=== PATIENT | female | born 1970 | race Caucasian/White ===

== ENCOUNTER 2019-10-15 05:40 | Inpatient (IN) ==
[2019-10-15] MEDS ORDERED: IOPAMIDOL 100 ML BOTTLE IV ONE (05:41)
[2019-10-15] MEDS ORDERED: LACTATED RINGERS 1,000 ML IV ONE (05:58)
[2019-10-15] MEDS ORDERED: ONDANSETRON 4 MG/2 ML VIAL IV ONE (05:58)
[2019-10-15 05:59] LABS: POC Blood Urea Nitrogen 14 mg/dl (6-20); POC CO2 24 mmol/L (22-30); POC Calcium, Ionized 1.11 mmol/L (1.16-1.32); POC Chloride 102 mmol/L (96-108); POC Creatinine 0.6 mg/dl (0.6-1.1); POC Glucose, Random 101 mg/dL (70-105); POC Potassium 3.8 mmol/L (3.3-5.1); POC Sodium 136 mmol/L (133-145)
[2019-10-15] MEDS: HYDROmorphone 2 MG/ML VIAL IV SCH (06:27)
--- NOTE | 2019-10-15 06:32 | Emergency Department Note ---
Abdominal Pain HPI - General Chief Complaint: Abdominal Pain Stated Complaint: abd pain Time Seen by Provider: 10/15/19 05:58 Source: patient Mode of arrival: ambulatory Limitations: no limitations - History of Present Illness HPI Narrative: This patient began having periumbilical pain yesterday and it has localized to right lower quadrant today. She feels minimal nausea and no fever. She is otherwise healthy and works out daily. MD Complaint: abdominal pain Onset (ago): hour(s) Consistency: constant Location: RLQ Severity: moderate Quality: aching Radiation: none Improves with: nothing Worsens with: movement - Related Data Home Medications Medication Instructions Recorded Confirmed Estrogen,Con/M-Progest Acet DAILY 10/15/19 [Prempro 0.3 mg-1.5 mg Tablet] Previous Rx's Medication Instructions Recorded trazodone 150 mg tablet 150 mg PO QHS PRN #90 tab 11/07/18 Cyclobenzaprine [Flexeril] 10 mg PO TID #20 tab 04/01/19 Allergies Allergy/AdvReac Type Severity Reaction Status Date / Time No Known Drug Allergies Allergy Verified 10/15/19 05:45 Review of Systems All systems ED: reviewed and negative except as stated. Abdominal Pain PMH - Past Medical History Medical history: Reports: no medical history - Social History Smoking status: Never smoker Physical Exam Limitations: no limitations General appearance: alert Head: atraumatic Eye: Present: normal appearance ENT: Present: normal exam Neck: Present: normal inspection Chest: Present: normal inspection Respiratory: Present: normal lung sounds bilaterally Cardiovascular: Present: regular rate, normal rhythm, normal heart sounds Abdominal: Present: soft, tenderness, guarding. Absent: distention, rebound, rigidity Abdominal tenderness: Present: RLQ, moderate Neurological: Present: alert Psychiatric: Present: normal affect Skin: Present: warm, dry Course Vital Signs Temperature 98.0 F 10/15/19 05:41 Pulse Rate 92 H 10/15/19 05:41 Respiratory Rate 18 10/15/19 05:41 Blood Pressure 136/73 10/15/19 05:41 Pulse Oximetry (%) 97 10/15/19 05:41 Temperature 98.0 F 10/15/19 05:41 Pulse Rate 91 H 10/15/19 06:55 Respiratory Rate 18 10/15/19 05:41 Blood Pressure 153/72 11/18/19 06:55 Pulse Oximetry (%) 96 10/15/19 06:55 Abdominal Pain - MDM Narrative Medical decision making narrative: CT scan is very suggestive of appendicitis. She will be admitted to the hospital by Dr. Joshua for appendectomy. We ordered Zosyn and admitted her. - Lab Data Lab results reviewed: Yes I reviewed the patient's lab results. Result diagrams: 10/15/19 05:55 10/15/19 05:55 Lab Results 10/15/19 10/15/19 10/15/19 Range/Units 05:55 05:55 06:15 WBC 15.6 H (4.5-11.0) K/mcL RBC 4.20 (4.00-5.20) M/mcL Hgb 13.0 (12.0-15.0) g/dL Hct 38.0 (36.0-48.0) % POC Hct 37.0 (36.0-48.0) % MCV 90.4 (80.0-100.0) fL MCH 31.0 (26.0-34.0) pg MCHC 34.3 (31.0-36.0) g/dL RDW 12.5 (11.5-14.5) % Plt Count 251 (140-440) K/mcL MPV 6.8 L (7.4-10.4) fL Gran % 81.6 H (38.0-78.0) % Lymph % (Auto) 12.4 L (15.5-49.0) % [place] % (Auto) 5.5 (1.0-12.0) % Eos % (Auto) 0.2 (0.0-7.0) % Baso % (Auto) 0.3 (0.0-2.0) % Gran # 12.7 H (1.8-8.0) K/mcL Lymph # (Auto) 1.9 (1.5-4.8) K/mcL [place] # (Auto) 0.9 (0.1-0.9) K/mcL Eos # (Auto) 0 (0.0-0.7) K/mcL Baso # (Auto) 0 (0.0-0.3) K/mcL POC Sodium 136 (133-145) mmol/L POC Potassium 3.8 (3.3-5.1) mmol/L POC Chloride 102 (96-108) mmol/L POC Total CO2 24 (22-30) mmol/L POC BUN 14 (6-20) mg/dl POC Creatinine 0.6 (0.6-1.1) mg/dl POC Glucose 101 (70-105) mg/dL POC WB Ioniz Calcium 1.11 L (1.16-1.32) mmol/L Urine Color Yellow Urine Appearance Clear Urine pH 8.0 (5.0-9.0) Ur Specific [place] 1.017 (1.000-1.035) Urine Protein Neg (NEG) mg/dL Urine Glucose (UA) Negative (NEG) mg/dL Urine Ketones Neg (NEG) mg/dL Urine Occult Blood Neg (<0.03) mg/dL Urine Nitrate Neg (NEG) Urine Bilirubin Neg (NEG) mg/dL Urine Urobilinogen Neg (NEG) mg/dL Ur Leukocyte Esterase Neg (NEG) /uL Ur Culture Indicated? No - Radiology Data Radiology results reviewed: Yes I reviewed the patient's radiology results. Disposition Pt seen by ANATOMIC PATHOLOGY ASSISTANT/PA only: No Clinical Impression: Acute appendicitis Disposition: Xfer As Outpt/Obs ([facility]) Condition: Good Referrals: Opal Marinelli ARNP [Primary Care Provider] - Time of Disposition: 07:11
[2019-10-15 06:58] LABS: Basophils # (Auto) 0 K/mcL (0.0-0.3); Basophils % (Auto) 0.3 % (0.0-2.0); Eosinophils # (Auto) 0 K/mcL (0.0-0.7); Eosinophils % (Auto) 0.2 % (0.0-7.0); Granulocytes % (Auto) 81.6 % (38.0-78.0); Lymphocytes # (Auto) 1.9 K/mcL (1.5-4.8); Lymphocytes % (Auto) 12.4 % (15.5-49.0); Mean Cell Volume 90.4 fL (80.0-100.0); Mean Corpuscular HGB Conc 34.3 g/dL (31.0-36.0); Mean Platelet Volume 6.8 fL (7.4-10.4); Monocytes # (Auto) 0.9 K/mcL (0.1-0.9); Monocytes % (Auto) 5.5 % (1.0-12.0); Platelet Count 251 K/mcL (140-440); Red Cell Distribution Width 12.5 % (11.5-14.5); WBC 15.6 K/mcL (4.5-11.0)
[2019-10-15 07:03] LABS: Appearance,Urine CLEAR; Bilirubin,Urine NEG (NEG); Color,Urine YELLOW; Culture Indicated,Urine NO; Glucose,Urine (UA) NEGATIVE (NEG); Ketones,Urine NEG (NEG); Leukocyte Esterase,Urine NEG /uL (NEG); Nitrate,Urine NEG (NEG); Protein,Urine NEG (NEG); Specific Gravity,Urine 1.017 (1.000-1.035); Urine Blood NEG mg/dL (<0.03); Urobilinogen,Urine NEG (NEG)
[2019-10-15] MEDS ORDERED: PIPERACILLIN SODIUM/TAZOBACTAM 3.375 GM in DEXTROSE 5% IN WATER 50 ML IV ONE (07:03)
[2019-10-15 07:13] LABS: ALT/SGPT 14 U/l (0-40); AST/SGOT 14 U/l (0-37); Albumin 3.9 gm/dL (3.2-5.2); Alkaline Phosphatase 67 U/L (39-117); Bilirubin,Total 0.6 mg/dL (0.0-1.0); Blood Urea Nitrogen 14 mg/dl (6-20); Calcium 8.7 mg/dl (8.6-10.4); Carbon Dioxide 24 mmol/L (22-30); Chloride 102 mmol/L (96-108); Glomerular Filtration Rate 102; Glucose 100 mg/dL (70-105)
--- NOTE | 2019-10-15 09:17 | Cat Scan Report ---
CLINICAL INFORMATION: Right lower quadrant pain COMPARISON: None. TECHNIQUE: Following enteric contrast, 80 cc of Isovue-370 were injected intravenously, and 60 seconds later, 0.625 mm helical slices were obtained from the mid heart through the subtrochanteric regions. Following reconstruction, 2.5 mm sagittal, coronal and axial reformatted images were processed and reviewed at bone, lung and soft tissue windows. Five minutes later, 0.625 mm helical slices were obtained from the mid heart through the kidneys and viewed at soft tissue windows.The exam was performed using radiation dose optimization techniques including, but not limited to, automated exposure control, adjustment of the mA and/or kV according to patient size and use of iterative reconstruction technique. FINDINGS: Lung bases show no abnormality - no effusion. The visualized heart is normal. Abdominal images show the gallbladder and bile ducts, both kidneys, adrenal glands, spleen, pancreas and aorta, including aortic branches are normal in size configuration and attenuation without focal lesion. There is no adenopathy. Pelvic images show hysterectomy changes. There is a 20 mm simple cyst in the right ovary. Left ovary is not seen and may be surgically absent. Urinary bladder is normal. Sigmoid diverticulitis featuring moderate wall thickening of the mid sigmoid colon with perisigmoid phlegmon. There is a collection of free air in the superior perisigmoid region spanning 7 cm representing focal perforation. In addition, small amount of free air present in the gopal hepatis and over the anterior surface of the right hepatic lobe. The remaining colon is normal. A small amount of fluid in the inferior right paracolic gutter partially obscures the mid and distal appendix. The proximal appendix, near the cecal junction, appears unremarkable. Small bowel and stomach are normal. Bone windows show no osseous abnormality IMPRESSION: 1. Sigmoid diverticulitis with moderate perforation of inflamed diverticulum resulting in a 7 cm collection of free air in the adjacent superior perisigmoid soft tissues. In addition, a small amount in the gopal hepatis and perihepatic region. Small amount of free fluid is also noted. 2. The appendix is not well-visualized - the distal /mid appendix are obscured by paracolic fluid. Near the cecal junction, the is normal - no definite evidence of appendicitis Interpreted and Authenticated by: Pete Koch 10/15/19
[2019-10-15] MEDS: HYDROmorphone 2 MG/ML VIAL IV PRN ×3 (10:27→18:03)
--- NOTE | 2019-10-15 13:48 | General Surg History&Physical ---
History of Present Illness Patient information: Note initiated : 10/15/19 at 1:45 pm Service Date, if different from initiated Date: [] Patient: Radha Chavez a 48 y/o F admitted on 10/15/19 for abd pain. Chief Complaint: [] HPI: Ms. Chavez is a 48 year old F admitted for treatment of acute diverticulitis with perforation. The patient had onset of suprapubic pain about 1400 hrs. yesterday. This was accompanied by nausea with vomiting. She did not have fever, chills. Her pain spread across the abdomen and intensified. This prompted her to come to the emergency room. Her white blood count is increased to 15,[address] of the abdomen shows sigmoid diverticulitis with perforation and scattered free air with early development of collection in the pelvis. She is admitted and is counseled for nonoperative treatment. As she improves. She will have follow-up CT on September. Her therapy will be based on her clinical course. Review of Systems - Constitutional weight loss (intentional weight loss) - Respiratory no cough, no chest congestion, no pain with cough - Gastrointestinal abdominal pain, bloating, nausea, vomiting - Musculoskeletal back pain, myalgias - Integumentary no pruritus, no rash - Psychiatric abnormal sleep pattern, anxiety, depression - Hematologic/Lymphatic no easy bleeding, no easy bruising, no lymphadenopathy - Allergic/Immunologic no tongue swelling, no throat swelling, no uticaria, no wheezing, no lip swelling Past History Past medical history: No chronic medical illnesses Past surgical history: Vaginal hysterectomy. Arthroscopic surgery right knee. Tubal ligation. Left breast biopsy Past family history: Father at age 42 due to complications of heart attack. Mother age 32 due to complications of surgery. Brother age 50 due to complications of alcoholism. Aunt with breast cancer Past social history: Never smoker. Occasional alcohol use Denies drug use Medications and Allergies Home Medications Medication Instructions Recorded Confirmed Type trazodone 150 mg tablet 150 mg PO QHS PRN #90 tab 11/07/18 10/15/19 Rx Cyclobenzaprine [Flexeril] 10 mg PO TID PRN 10/15/19 10/15/19 History Estradiol [Estrace] 2 mg PO DAILY 10/15/19 10/15/19 History Progesterone,Micronized 200 mg PO QDAY 10/15/19 10/15/19 History [Prometrium] Allergies Allergy/AdvReac Type Severity Reaction Status Date / Time No Known Drug Allergies Allergy Verified 10/15/19 05:45 Exam Temp Pulse Resp BP Pulse Ox 99 F 18 L 18 126/75 97 10/15/19 09:22 10/15/19 09:22 10/15/19 09:22 10/15/19 09:22 10/15/19 09:22 - General physical appearance well developed, well nourished, no distress, moderate pain - Eyes PERRL, normal ocular movement - ENT normal pinna, normal nares, normal mucosa, no hearing loss, no congestion - Head Head exam IM: Present: atraumatic, normocephalic - Neck no masses, no bruits, trachea midline, no lymphadenopathy, no venous distension - Cardiovascular Cardiovascular exam IM: Present: normal rate and rhythm, RRR, +S1, +S2. Absent: JVD, tachycardia - Respiratory normal expansion, normal respiratory effort, clear to auscultation - Abdomen Abdomen: Present: soft, tender (diffuse tenderness with guarding of entire lower abdomen; active bowel sounds; no palpable mass), bowel sounds Hernia: Present: none - Genitourinary Present: normal external genitalia - Integumentary Present: no rash, no growths, no abnormal pigmentation - Neurologic Present: normal coordination, normal sensation - Musculoskeletal Present: normal gait, normal posture - Psychiatric Present: oriented to time, oriented to person, oriented to place, speech is normal, memory intact Assessment and Plan (1) Diverticulitis of colon with perforation Patient is started on Zosyn and will be continued. Plan is for follow-up CT on Tuesday. Will explored emergently if patient should worsen. Status: Acute
[2019-10-15] MEDS ORDERED: ACETAMINOPHEN 1,000 MG in PREMIX 1 BAG IV SCH (14:00)
[2019-10-15] MEDS: PIPERACILLIN SODIUM/TAZOBACTAM 3.375 GM in DEXTROSE 5% IN WATER 50 ML IV SCH ×2 (14:27→21:17)
[2019-10-15] MEDS: 0.9 % SODIUM CHLORIDE 10 ML SYRINGE IV SCH ×2 (15:31→22:12)
[2019-10-15] MEDS: 0.9 % SODIUM CHLORIDE 1,000 ML IV SCH ×2 (15:53→23:45)
[2019-10-15] MEDS: ACETAMINOPHEN 1,000 MG/100 ML BOTTLE IV SCH ×2 (15:54→22:11)
[2019-10-15] MEDS: ONDANSETRON 4 MG/2 ML VIAL IV PRN (18:40)
[2019-10-15] MEDS: PROMETHAZINE 25 MG/ML VIAL IV PRN ×2 (19:36→23:43)
[2019-10-15] MEDS: traZODone HCL 150 MG TABLET PO PRN (22:10)
[2019-10-16] MEDS: HYDROmorphone 2 MG/ML VIAL IV PRN ×7 (02:50→23:31)
[2019-10-16] MEDS: PIPERACILLIN SODIUM/TAZOBACTAM 3.375 GM in DEXTROSE 5% IN WATER 50 ML IV SCH ×4 (03:35→18:14)
[2019-10-16] MEDS: ACETAMINOPHEN 1,000 MG/100 ML BOTTLE IV SCH ×3 (04:22→19:30)
[2019-10-16] MEDS: PROMETHAZINE 25 MG/ML VIAL IV PRN ×3 (04:24→23:28)
[2019-10-16] MEDS: 0.9 % SODIUM CHLORIDE 10 ML SYRINGE IV SCH ×3 (05:38→21:40)
[2019-10-16 05:45] LABS: Basophils # (Auto) 0 K/mcL (0.0-0.3); Basophils % (Auto) 0 % (0.0-2.0); Eosinophils # (Auto) 0.1 K/mcL (0.0-0.7); Eosinophils % (Auto) 0.6 % (0.0-7.0); Granulocytes % (Auto) 84.8 % (38.0-78.0); Hematocrit 33.8 % (36.0-48.0); Hemoglobin 11.6 g/dL (12.0-15.0); Lymphocytes # (Auto) 1.2 K/mcL (1.5-4.8); Lymphocytes % (Auto) 8.6 % (15.5-49.0); Mean Cell Volume 91.1 fL (80.0-100.0); Mean Corpuscular HGB Conc 34.3 g/dL (31.0-36.0); Mean Platelet Volume 6.7 fL (7.4-10.4); Monocytes # (Auto) 0.8 K/mcL (0.1-0.9); Platelet Count 217 K/mcL (140-440); RBC 3.72 M/mcL (4.00-5.20); Red Cell Distribution Width 12.7 % (11.5-14.5); WBC 13.9 K/mcL (4.5-11.0)
[2019-10-16] MEDS: HYDROmorphone 2 MG/ML VIAL IV SCH (05:48)
[2019-10-16 06:53] LABS: ALT/SGPT 11 U/l (0-40); AST/SGOT 14 U/l (0-37); Albumin/Globulin Ratio 1.2 (1.0-2.3); Alkaline Phosphatase 67 U/L (39-117); Bilirubin,Direct 0.2 mg/dL (0.0-0.3); Bilirubin,Total 0.6 mg/dL (0.0-1.0); Blood Urea Nitrogen 10 mg/dl (6-20); Carbon Dioxide 22 mmol/L (22-30); Chloride 104 mmol/L (96-108); Globulin 2.5 gm/dL (2.2-3.7); Glomerular Filtration Rate 102; Glucose 108 mg/dL (70-105); Lactate Dehydrogenase 167 U/L (94-250); Phosphorous 3.8 mg/dL (2.7-4.5); Triglycerides 56 mg/dl (<150); Uric Acid 3.2 mg/dL (2.5-8.0)
[2019-10-16] MEDS: 0.9 % SODIUM CHLORIDE 1,000 ML IV SCH ×3 (07:43→17:08)
[2019-10-16] MEDS: ESTRADIOL 1 MG TABLET PO SCH (09:27)
[2019-10-16] MEDS: PROGESTERONE MICRONIZED 200 MG PO SCH (09:36)
--- NOTE | 2019-10-16 11:22 | General Surgery Progress Note ---
Subjective Patient reports: feels better, still having pain, pain is less, flatus, nausea, vomiting Narrative: Note initiated : 10/16/19 at 11:20 am Service Date, if different from initiated Date: [] Patient: Radha Chavez 48 y/o F admitted on 10/15/19 for abd pain. Chief Complaint: [patient states that she feels better. She still has some lower abdominal pain but it is not as intense as it was on yesterday. She had some nausea with vomiting last evening that was associated with eating a popsicle. She does not have any difficulty. Ice chips and sips of water, so it was probably more related to the popsicle. She has less bloating. She has passed flatus but has not had a bowel movement. White blood count is decreased to 13.9, hemoglobin 11.6, hematocrit 33.8.] Objective Temp Pulse Resp BP Pulse Ox 97.6 F 94 H 16 130/69 97 10/16/19 07:18 10/16/19 07:18 10/16/19 02:40 10/16/19 07:18 10/16/19 07:18 - Additional Data Intake & Output - Last 24 hours: Intake & Output 10/14/19 10/15/19 10/16/19 10/17/19 05:59 05:59 05:59 05:59 Intake Total 2650 1200 Output Total 600 Balance 0 1200 Weight 185 lb 190 lb - General physical appearance well developed, well nourished, no distress, moderate pain - Eyes PERRL, normal ocular movement - ENT normal pinna, normal nares, normal mucosa, no hearing loss, no congestion - Neck no masses, no bruits, trachea midline, no lymphadenopathy, no venous distension - Respiratory normal expansion, normal respiratory effort, clear to auscultation - Cardiovascular Cardiovascular exam: Present: normal rate and rhythm, +S1, +S2. Absent: RRR, tachycardia - Abdomen tender (moderate tenderness of hypogastric; decreased distention; good active bowel sounds), bowel sounds (present), surgical scars (none), masses (none) - Integumentary no rash, no growths, no abnormal pigmentation - Neurologic normal coordination, normal sensation - Musculoskeletal normal gait, normal posture - Psychiatric oriented to time, oriented to person, oriented to place, speech is normal, memory intact - Labs 10/16/19 03:56 10/16/19 03:56 Diabetes panel 10/16/19 Range/Units 03:56 Sodium 138 (133-145) mmol/L Potassium 3.6 (3.3-5.1) mmol/L Chloride 104 (96-108) mmol/L Carbon Dioxide 22 (22-30) mmol/L BUN 10 (6-20) mg/dl Creatinine 0.7 (0.6-1.1) mg/dl Glucose 108 H (70-105) mg/dL Calcium 8.0 L (8.6-10.4) mg/dl AST 14 (0-37) U/l ALT 11 (0-40) U/l Alkaline Phosphatase 67 (39-117) U/L Total Protein 5.5 L (5.9-8.4) gm/dL Albumin 3.0 L (3.2-5.2) gm/dL Triglycerides 56 (<150) mg/dl Calcium panel 10/16/19 Range/Units 03:56 Calcium 8.0 L (8.6-10.4) mg/dl Phosphorus 3.8 (2.7-4.5) mg/dL Albumin 3.0 L (3.2-5.2) gm/dL Pituitary panel 10/16/19 Range/Units 03:56 Sodium 138 (133-145) mmol/L Potassium 3.6 (3.3-5.1) mmol/L Chloride 104 (96-108) mmol/L Carbon Dioxide 22 (22-30) mmol/L BUN 10 (6-20) mg/dl Creatinine 0.7 (0.6-1.1) mg/dl Glucose 108 H (70-105) mg/dL Calcium 8.0 L (8.6-10.4) mg/dl Adrenal panel 10/16/19 Range/Units 03:56 Sodium 138 (133-145) mmol/L Potassium 3.6 (3.3-5.1) mmol/L Chloride 104 (96-108) mmol/L Carbon Dioxide 22 (22-30) mmol/L BUN 10 (6-20) mg/dl Creatinine 0.7 (0.6-1.1) mg/dl Glucose 108 H (70-105) mg/dL Calcium 8.0 L (8.6-10.4) mg/dl Total Bilirubin 0.6 (0.0-1.0) mg/dL AST 14 (0-37) U/l ALT 11 (0-40) U/l Alkaline Phosphatase 67 (39-117) U/L Total Protein 5.5 L (5.9-8.4) gm/dL Albumin 3.0 L (3.2-5.2) gm/dL Assessment and Plan (1) Diverticulitis of colon with perforation Status: Acute Assessment and plan: The patient is clinically stable and improved. Discussed with her the need to c ontinue with present therapy. Will delay instituting liquid diet until tomorrow. Still plan to have follow-up CT on Tuesday Current Visit: Yes - Time Spent With Patient Total time spent is greater than 50% in coordination of care (as documented) at patient's floor/unit and/or counseling patient:
[2019-10-16] MEDS ORDERED: ACETAMINOPHEN 1,000 MG/100 ML BOTTLE IV PRN (20:00)
[2019-10-16] MEDS: traZODone HCL 150 MG TABLET PO PRN (23:31)
[2019-10-17] MEDS: ACETAMINOPHEN 1,000 MG/100 ML BOTTLE IV SCH ×4 (00:44→17:43)
[2019-10-17] MEDS: PIPERACILLIN SODIUM/TAZOBACTAM 3.375 GM in DEXTROSE 5% IN WATER 50 ML IV SCH ×4 (01:12→17:41)
[2019-10-17] MEDS: 0.9 % SODIUM CHLORIDE 1,000 ML IV SCH ×4 (01:12→21:28)
[2019-10-17] MEDS: HYDROmorphone 2 MG/ML VIAL IV PRN ×2 (04:12→21:53)
[2019-10-17 05:59] LABS: Basophils # (Auto) 0 K/mcL (0.0-0.3); Basophils % (Auto) 0.3 % (0.0-2.0); Eosinophils # (Auto) 0.2 K/mcL (0.0-0.7); Eosinophils % (Auto) 1.3 % (0.0-7.0); Granulocytes % (Auto) 79.3 % (38.0-78.0); Hematocrit 31.2 % (36.0-48.0); Hemoglobin 10.7 g/dL (12.0-15.0); Lymphocytes # (Auto) 1.4 K/mcL (1.5-4.8); Lymphocytes % (Auto) 11.4 % (15.5-49.0); Mean Cell Volume 89.5 fL (80.0-100.0); Mean Corpuscular HGB Conc 34.2 g/dL (31.0-36.0); Mean Platelet Volume 7.1 fL (7.4-10.4); Monocytes # (Auto) 0.9 K/mcL (0.1-0.9); Monocytes % (Auto) 7.7 % (1.0-12.0); Platelet Count 208 K/mcL (140-440); RBC 3.49 M/mcL (4.00-5.20); Red Cell Distribution Width 11.9 % (11.5-14.5); WBC 12.3 K/mcL (4.5-11.0)
[2019-10-17 06:45] LABS: ALT/SGPT 10 U/l (0-40); AST/SGOT 13 U/l (0-37); Albumin 2.8 gm/dL (3.2-5.2); Albumin/Globulin Ratio 1.1 (1.0-2.3); Alkaline Phosphatase 95 U/L (39-117); Bilirubin,Direct 0.3 mg/dL (0.0-0.3); Bilirubin,Total 0.6 mg/dL (0.0-1.0); Blood Urea Nitrogen 6 mg/dl (6-20); Carbon Dioxide 23 mmol/L (22-30); Chloride 105 mmol/L (96-108); Globulin 2.5 gm/dL (2.2-3.7); Glomerular Filtration Rate 107; Glucose 103 mg/dL (70-105); Lactate Dehydrogenase 173 U/L (94-250); Phosphorous 2.7 mg/dL (2.7-4.5); Triglycerides 81 mg/dl (<150)
[2019-10-17] MEDS: 0.9 % SODIUM CHLORIDE 10 ML SYRINGE IV SCH ×3 (06:47→21:12)
[2019-10-17 06:48] LABS: Uric Acid 2.3 mg/dL (2.5-8.0)
[2019-10-17] MEDS: HYDROmorphone 2 MG/ML VIAL IV SCH (06:48)
[2019-10-17] MEDS: PROMETHAZINE 25 MG/ML VIAL IV PRN ×3 (06:50→21:11)
[2019-10-17] MEDS: ESTRADIOL 1 MG TABLET PO SCH ×2 (08:54→08:57)
[2019-10-17] MEDS: PROGESTERONE MICRONIZED 200 MG PO SCH ×3 (08:54→21:12)
[2019-10-17] MEDS: ONDANSETRON 4 MG/2 ML VIAL IV PRN (12:32)
--- NOTE | 2019-10-17 15:14 | General Surgery Progress Note ---
Subjective Patient reports: feels better, still having pain, pain is less, flatus, no bowel movement, nausea, vomiting, afebrile Narrative: Note initiated : 10/17/19 at 3:12 pm Service Date, if different from initiated Date: [] Patient: Radha Chavez 48 y/o F admitted on 10/15/19 for abd pain. Chief Complaint: [patient states that she has less pain. She has not required many or as frequent analgesics. She had some nausea with emesis of white foam. No bilious vomiting. She has passed flatus without difficulty. She states that she generally feels better. White blood count 12.3, hemoglobin 10.7, hematocrit 31.2.] Objective Temp Pulse Resp BP Pulse Ox 98.6 F 90 16 142/80 92 10/17/19 12:00 10/17/19 12:00 10/17/19 12:00 10/17/19 12:00 10/17/19 12:00 - Additional Data Intake & Output - Last 24 hours: Intake & Output 10/15/19 10/16/19 10/17/19 10/18/19 05:59 05:59 05:59 05:59 Intake Total 2650 3810 1300 Output Total 600 1425 525 Balance 2049 2385 775 Weight 185 lb 190 lb 191 lb 8 oz - General physical appearance well developed, well nourished, no distress - Eyes PERRL, normal ocular movement - ENT normal pinna, normal nares, normal mucosa, no hearing loss, no congestion - Neck no masses, no bruits, trachea midline, no lymphadenopathy, no venous distension - Respiratory normal expansion, normal respiratory effort, clear to auscultation - Cardiovascular Cardiovascular exam: Present: normal rate and rhythm, +S1, +S2. Absent: RRR, tachycardia - Abdomen tender (still with tenderness in suprapubic and hypogastric area; much less guarding; active bowel sounds; no distention), bowel sounds (present), surgical scars (none), masses (none) - Integumentary no rash, no growths, no abnormal pigmentation - Neurologic normal coordination, normal sensation - Musculoskeletal normal gait, normal posture - Psychiatric oriented to time, oriented to person, oriented to place, speech is normal, memory intact - Labs 10/17/19 04:08 10/17/19 04:08 Diabetes panel 10/17/19 Range/Units 04:08 Sodium 138 (133-145) mmol/L Potassium 3.3 (3.3-5.1) mmol/L Chloride 105 (96-108) mmol/L Carbon Dioxide 23 (22-30) mmol/L BUN 6 (6-20) mg/dl Creatinine 0.6 (0.6-1.1) mg/dl Glucose 103 (70-105) mg/dL Calcium 8.0 L (8.6-10.4) mg/dl AST 13 (0-37) U/l ALT 10 (0-40) U/l Alkaline Phosphatase 95 (39-117) U/L Total Protein 5.3 L (5.9-8.4) gm/dL Albumin 2.8 L (3.2-5.2) gm/dL Triglycerides 81 (<150) mg/dl Calcium panel 10/17/19 Range/Units 04:08 Calcium 8.0 L (8.6-10.4) mg/dl Phosphorus 2.7 (2.7-4.5) mg/dL Albumin 2.8 L (3.2-5.2) gm/dL Pituitary panel 10/17/19 Range/Units 04:08 Sodium 138 (133-145) mmol/L Potassium 3.3 (3.3-5.1) mmol/L Chloride 105 (96-108) mmol/L Carbon Dioxide 23 (22-30) mmol/L BUN 6 (6-20) mg/dl Creatinine 0.6 (0.6-1.1) mg/dl Glucose 103 (70-105) mg/dL Calcium 8.0 L (8.6-10.4) mg/dl Adrenal panel 10/17/19 Range/Units 04:08 Sodium 138 (133-145) mmol/L Potassium 3.3 (3.3-5.1) mmol/L Chloride 105 (96-108) mmol/L Carbon Dioxide 23 (22-30) mmol/L BUN 6 (6-20) mg/dl Creatinine 0.6 (0.6-1.1) mg/dl Glucose 103 (70-105) mg/dL Calcium 8.0 L (8.6-10.4) mg/dl Total Bilirubin 0.6 (0.0-1.0) mg/dL AST 13 (0-37) U/l ALT 10 (0-40) U/l Alkaline Phosphatase 95 (39-117) U/L Total Protein 5.3 L (5.9-8.4) gm/dL Albumin 2.8 L (3.2-5.2) gm/dL Assessment and Plan (1) Diverticulitis of colon with perforation Status: Acute Assessment and plan: The patient is clinically stable and improved. Discussed with her the need to continue with present therapy. Start clear liquids ENLIVE 3 times a day Follow-up CT on Tuesday Current Visit: Yes - Time Spent With Patient Total time spent is greater than 50% in coordination of care (as documented) at patient's floor/unit and/or counseling patient:
[2019-10-17] MEDS ORDERED: POTASSIUM PHOSPHATE 40 MEQ in DEXTROSE 5% IN WATER 500 ML IV ONE (15:15)
[2019-10-17] MEDS: CYCLOBENZAPRINE 10 MG TABLET PO PRN (21:13)
[2019-10-17] MEDS: traZODone HCL 150 MG TABLET PO PRN (21:50)
[2019-10-18] MEDS: PIPERACILLIN SODIUM/TAZOBACTAM 3.375 GM in DEXTROSE 5% IN WATER 50 ML IV SCH ×4 (00:04→17:50)
[2019-10-18] MEDS: 0.9 % SODIUM CHLORIDE 1,000 ML IV SCH ×5 (00:14→22:15)
[2019-10-18] MEDS: ACETAMINOPHEN 1,000 MG/100 ML BOTTLE IV SCH ×5 (01:07→23:25)
[2019-10-18] MEDS: HYDROmorphone 2 MG/ML VIAL IV PRN ×2 (03:28→22:03)
[2019-10-18] MEDS: PROMETHAZINE 25 MG/ML VIAL IV PRN ×3 (03:28→19:46)
[2019-10-18] MEDS: 0.9 % SODIUM CHLORIDE 10 ML SYRINGE IV SCH ×3 (05:59→22:15)
[2019-10-18 06:28] LABS: Basophils # (Auto) 0.1 K/mcL (0.0-0.3); Basophils % (Auto) 0.6 % (0.0-2.0); Eosinophils # (Auto) 0.2 K/mcL (0.0-0.7); Eosinophils % (Auto) 1.7 % (0.0-7.0); Granulocytes % (Auto) 75.6 % (38.0-78.0); Hematocrit 31.5 % (36.0-48.0); Hemoglobin 10.8 g/dL (12.0-15.0); Lymphocytes # (Auto) 1.4 K/mcL (1.5-4.8); Lymphocytes % (Auto) 12.5 % (15.5-49.0); Mean Cell Volume 89.6 fL (80.0-100.0); Mean Corpuscular HGB Conc 34.1 g/dL (31.0-36.0); Mean Platelet Volume 7.3 fL (7.4-10.4); Monocytes # (Auto) 1.1 K/mcL (0.1-0.9); Monocytes % (Auto) 9.6 % (1.0-12.0); Platelet Count 230 K/mcL (140-440); RBC 3.51 M/mcL (4.00-5.20); Red Cell Distribution Width 11.7 % (11.5-14.5)
[2019-10-18 06:51] LABS: ALT/SGPT 10 U/l (0-40); AST/SGOT 14 U/l (0-37); Albumin 2.7 gm/dL (3.2-5.2); Alkaline Phosphatase 110 U/L (39-117); Bilirubin,Total 0.7 mg/dL (0.0-1.0); Blood Urea Nitrogen 5 mg/dl (6-20); Calcium 8.1 mg/dl (8.6-10.4); Carbon Dioxide 25 mmol/L (22-30); Chloride 104 mmol/L (96-108); Globulin 2.6 gm/dL (2.2-3.7); Glomerular Filtration Rate 107; Glucose 91 mg/dL (70-105); Lactate Dehydrogenase 168 U/L (94-250); Phosphorous 3.1 mg/dL (2.7-4.5); Triglycerides 105 mg/dl (<150); Uric Acid 2.3 mg/dL (2.5-8.0)
[2019-10-18 06:52] LABS: Bilirubin,Direct 0.4 mg/dL (0.0-0.3)
[2019-10-18] MEDS: ESTRADIOL 1 MG TABLET PO SCH (09:13)
[2019-10-18] MEDS: CYCLOBENZAPRINE 10 MG TABLET PO PRN (09:17)
--- NOTE | 2019-10-18 17:46 | General Surgery Progress Note ---
Subjective Patient reports: feels better, still having pain, flatus, nausea Narrative: Note initiated : 10/18/19 at 5:46 pm Service Date, if different from initiated Date: [] Patient: Radha Chavez 48 y/o F admitted on 10/15/19 for abd pain. Chief Complaint: [Patient is clinically improved. Her pain is continuing to resolve. She has some flatus. She denies nausea or vomiting. Discussed the need to proceed with follow-up CT to evaluate the status of the inflammation and the abscess. She was informed that the findings on the CT, we'll determine how long she has to stay in the hospital.] Objective Temp Pulse Resp BP Pulse Ox 98.4 F 73 18 147/86 97 10/18/19 16:00 10/18/19 11:16 10/18/19 16:00 10/18/19 16:00 10/18/19 16:00 - Additional Data Intake & Output - Last 24 hours: Intake & Output 10/16/19 10/17/19 10/18/19 10/19/19 05:59 05:59 05:59 05:59 Intake Total 2650 3810 3579.0909 1940 Output Total 600 1425 2825 1800 Balance 2049 2385 754.0909 140 Weight 190 lb 191 lb 8 oz 194 lb - General physical appearance moderate distress, moderate pain - Eyes PERRL, normal ocular movement - ENT normal pinna, normal nares, normal mucosa, no hearing loss, no congestion - Neck no masses, no bruits, trachea midline, no lymphadenopathy, no venous distension - Respiratory normal expansion, normal respiratory effort, clear to auscultation - Cardiovascular Cardiovascular exam: Present: normal rate and rhythm, RRR, +S1, +S2. Absent: JVD, tachycardia - Abdomen tender (tenderness and hypogastrium in bilateral lower quadrants; hypoactive bowel sounds) - Integumentary no rash, no growths, no abnormal pigmentation - Neurologic normal coordination, normal sensation - Musculoskeletal normal gait, normal posture - Psychiatric oriented to time, oriented to person, oriented to place, speech is normal, mem ory intact - Labs 10/22/19 04:25 10/22/19 04:25 Diabetes panel 10/18/19 Range/Units 04:24 Sodium 137 (133-145) mmol/L Potassium 3.8 (3.3-5.1) mmol/L Chloride 104 (96-108) mmol/L Carbon Dioxide 25 (22-30) mmol/L BUN 5 L (6-20) mg/dl Creatinine 0.6 (0.6-1.1) mg/dl Glucose 91 (70-105) mg/dL Calcium 8.1 L (8.6-10.4) mg/dl AST 14 (0-37) U/l ALT 10 (0-40) U/l Alkaline Phosphatase 110 (39-117) U/L Total Protein 5.3 L (5.9-8.4) gm/dL Albumin 2.7 L (3.2-5.2) gm/dL Triglycerides 105 (<150) mg/dl Calcium panel 10/18/19 Range/Units 04:24 Calcium 8.1 L (8.6-10.4) mg/dl Phosphorus 3.1 (2.7-4.5) mg/dL Albumin 2.7 L (3.2-5.2) gm/dL Pituitary panel 10/18/19 Range/Units 04:24 Sodium 137 (133-145) mmol/L Potassium 3.8 (3.3-5.1) mmol/L Chloride 104 (96-108) mmol/L Carbon Dioxide 25 (22-30) mmol/L BUN 5 L (6-20) mg/dl Creatinine 0.6 (0.6-1.1) mg/dl Glucose 91 (70-105) mg/dL Calcium 8.1 L (8.6-10.4) mg/dl Adrenal panel 10/18/19 Range/Units 04:24 Sodium 137 (133-145) mmol/L Potassium 3.8 (3.3-5.1) mmol/L Chloride 104 (96-108) mmol/L Carbon Dioxide 25 (22-30) mmol/L BUN 5 L (6-20) mg/dl Creatinine 0.6 (0.6-1.1) mg/dl Glucose 91 (70-105) mg/dL Calcium 8.1 L (8.6-10.4) mg/dl Total Bilirubin 0.7 (0.0-1.0) mg/dL AST 14 (0-37) U/l ALT 10 (0-40) U/l Alkaline Phosphatase 110 (39-117) U/L Total Protein 5.3 L (5.9-8.4) gm/dL Albumin 2.7 L (3.2-5.2) gm/dL Assessment and Plan (1) Diverticulitis of colon with perforation Status: Acute Assessment and plan: The patient is clinically stable and improved. Discussed with her the need to continue with present therapy. Start clear liquids ENLIVE 3 times a day Follow-up CT on Tuesday - Time Spent With Patient Total time spent is greater than 50% in coordination of care (as documented) at patient's floor/unit and/or counseling patient:
[2019-10-18] MEDS: PROGESTERONE MICRONIZED 200 MG PO SCH ×2 (19:47→21:02)
[2019-10-19] MEDS: PIPERACILLIN SODIUM/TAZOBACTAM 3.375 GM in DEXTROSE 5% IN WATER 50 ML IV SCH ×4 (00:30→18:28)
[2019-10-19] MEDS: 0.9 % SODIUM CHLORIDE 1,000 ML IV SCH ×2 (04:55→12:56)
[2019-10-19] MEDS: ACETAMINOPHEN 1,000 MG/100 ML BOTTLE IV SCH ×4 (05:37→23:29)
[2019-10-19 06:20] LABS: Basophils # (Auto) 0 K/mcL (0.0-0.3); Basophils % (Auto) 0.4 % (0.0-2.0); Eosinophils # (Auto) 0.3 K/mcL (0.0-0.7); Eosinophils % (Auto) 2.8 % (0.0-7.0); Hematocrit 31.8 % (36.0-48.0); Hemoglobin 10.8 g/dL (12.0-15.0); Lymphocytes # (Auto) 2.4 K/mcL (1.5-4.8); Mean Cell Volume 91.1 fL (80.0-100.0); Mean Corpuscular HGB Conc 33.9 g/dL (31.0-36.0); Mean Platelet Volume 6.7 fL (7.4-10.4); Monocytes % (Auto) 9.8 % (1.0-12.0); Platelet Count 230 K/mcL (140-440); RBC 3.49 M/mcL (4.00-5.20); Red Cell Distribution Width 12.6 % (11.5-14.5); WBC 9.8 K/mcL (4.5-11.0)
[2019-10-19 06:41] LABS: ALT/SGPT 12 U/l (0-40); AST/SGOT 16 U/l (0-37); Albumin 2.6 gm/dL (3.2-5.2); Alkaline Phosphatase 122 U/L (39-117); Bilirubin,Total 0.4 mg/dL (0.0-1.0); Blood Urea Nitrogen 5 mg/dl (6-20); Calcium 7.9 mg/dl (8.6-10.4); Carbon Dioxide 23 mmol/L (22-30); Chloride 105 mmol/L (96-108); Globulin 2.5 gm/dL (2.2-3.7); Glomerular Filtration Rate 114; Glucose 78 mg/dL (70-105); Lactate Dehydrogenase 160 U/L (94-250); Triglycerides 124 mg/dl (<150); Uric Acid 2.1 mg/dL (2.5-8.0)
[2019-10-19 06:53] LABS: Bilirubin,Direct 0.2 mg/dL (0.0-0.3)
[2019-10-19] MEDS: 0.9 % SODIUM CHLORIDE 10 ML SYRINGE IV SCH ×3 (08:00→21:39)
[2019-10-19] MEDS ORDERED: IOPAMIDOL 100 ML BOTTLE IV ONE (08:30)
--- NOTE | 2019-10-19 09:41 | Cat Scan Report ---
History: Fell with pain, follow-up diverticulitis TECHNIQUE: The patient was imaged following oral and intravenous contrast scanning from the diaphragm to the symphysis pubis. Sagittal and coronal reformats were created. The radiation exposure was limited using dose reduction technology. FINDINGS: Patient has a small layering right-sided pleural effusion and a tiny left-sided effusion. There is minor atelectasis in the posterior basal segment of the right lower lobe. A 1.3 cm cyst is present centrally in the right lobe of the liver. This is a chronic stable finding. There is mild prominence of the portal triads in both lobes of the liver. The periportal edema/inflammation was not present on 10/15/19. The gallbladder is nondistended. The wall is normal in thickness. The bile ducts are normal in caliber. The spleen is normal in size and homogeneous except for a couple small calcified granulomata. There is no mass or inflammation the pancreas. The adrenals and kidneys are normal. The appendix is noninflamed. Oral contrast has passed through normal caliber small intestine to the proximal colon, without obstruction. The diverticular abscess seen adjacent to the mid sigmoid colon has improved significantly since 10/15/19. It appears multiloculated and measures approximately 3 x 4 cm. There are few bubbles of air within the abscess. The free intraperitoneal air seen on prior study has resolved. There is less free fluid in the pelvis today. Adjacent to the abscess, there are multiple diverticula. No bowel obstruction is present. The uterus is surgically absent. Right ovary appears normal. Left ovary is difficult to clearly identified. IMPRESSION: Improving pelvic abscess due to acute diverticulitis New onset periportal edema. This is a nonspecific finding which may be seen with liver congestion, hepatitis, heart failure and hypoalbuminemia Small right-sided pleural effusion Interpreted and Authenticated by: Jan Marquis 10/19/19
[2019-10-19] MEDS: ESTRADIOL 1 MG TABLET PO SCH (10:09)
[2019-10-19] MEDS: PROMETHAZINE 25 MG/ML VIAL IV PRN ×3 (10:50→22:54)
[2019-10-19] MEDS ORDERED: LORazepam 2 MG/ML VIAL IV PRN (19:03)
--- NOTE | 2019-10-19 19:08 | General Surgery Progress Note ---
Subjective Patient reports: feels better, pain is less, tolerating liquids well, flatus, bowel movement, afebrile Narrative: Note initiated : 10/19/19 at 7:06 pm Service Date, if different from initiated Date: [] Patient: Radha Chavez 48 y/o F admitted on 10/15/19 for abd pain. Chief Complaint: [ patient is clinically stable. She is improved however CT still shows a 3 x 4 cm abscess and some free air in the area of the perforation. She remains afebrile and her white blood count is normal. She is advised that I would like to keep her until Tuesday to give her more antibiotics to try to prevent her from having recurrent symptoms that will necessitate her to have resection with colostomy. She will be continued on present antibiotics and I will treat her until Tuesday to try to assure good response prior to discharge home on oral medication.] Objective Temp Pulse Resp BP Pulse Ox 99.3 F H 67 16 150/84 97 10/19/19 16:00 10/19/19 03:31 10/19/19 16:00 10/19/19 16:00 10/19/19 16:00 - Additional Data Intake & Output - Last 24 hours: Intake & Output 10/17/19 10/18/19 10/19/19 10/20/19 05:59 05:59 05:59 05:59 Intake Total 3810 3579.0909 3290 1950 Output Total 1425 2825 3000 2600 Balance 2385 754.0909 290 -650 Weight 191 lb 8 oz 194 lb 187 lb 8 oz 187 lb 8 oz - General physical appearance well developed, well nourished, no distress - Eyes PERRL, normal ocular movement - ENT normal pinna, normal nares, normal mucosa, no hearing loss, no congestion - Neck no masses, no bruits, trachea midline, no lymphadenopathy, no venous distension - Respiratory normal expansion, normal respiratory effort, clear to auscultation - Cardiovascular Cardiovascular exam: Present: normal rate and rhythm, RRR, +S1, +S2. Absent: JVD, tachycardia - Abdomen tender (mild tenderness in suprapubic and hypogastric area persists but is improved from yesterday) - Integumentary no rash, no growths, no abnormal pigmentation - Neurologic normal coordination, normal sensation - Musculoskeletal normal gait, normal posture - Psychiatric oriented to time, oriented to person, oriented to place, speech is normal, memory intact - Labs 10/19/19 04:34 10/19/19 04:34 Diabetes panel 10/19/19 Range/Units 04:34 Sodium 138 (133-145) mmol/L Potassium 3.6 (3.3-5.1) mmol/L Chloride 105 (96-108) mmol/L Carbon Dioxide 23 (22-30) mmol/L BUN 5 L (6-20) mg/dl Creatinine 0.5 L (0.6-1.1) mg/dl Glucose 78 (70-105) mg/dL Calcium 7.9 L (8.6-10.4) mg/dl AST 16 (0-37) U/l ALT 12 (0-40) U/l Alkaline Phosphatase 122 H (39-117) U/L Total Protein 5.1 L (5.9-8.4) gm/dL Albumin 2.6 L (3.2-5.2) gm/dL Triglycerides 124 (<150) mg/dl Calcium panel 10/19/19 Range/Units 04:34 Calcium 7.9 L (8.6-10.4) mg/dl Phosphorus 3.0 (2.7-4.5) mg/dL Albumin 2.6 L (3.2-5.2) gm/dL Pituitary panel 10/19/19 Range/Units 04:34 Sodium 138 (133-145) mmol/L Potassium 3.6 (3.3-5.1) mmol/L Chloride 105 (96-108) mmol/L Carbon Dioxide 23 (22-30) mmol/L BUN 5 L (6-20) mg/dl Creatinine 0.5 L (0.6-1.1) mg/dl Glucose 78 (70-105) mg/dL Calcium 7.9 L (8.6-10.4) mg/dl Adrenal panel 10/19/19 Range/Units 04:34 Sodium 138 (133-145) mmol/L Potassium 3.6 (3.3-5.1) mmol/L Chloride 105 (96-108) mmol/L Carbon Dioxide 23 (22-30) mmol/L BUN 5 L (6-20) mg/dl Creatinine 0.5 L (0.6-1.1) mg/dl Glucose 78 (70-105) mg/dL Calcium 7.9 L (8.6-10.4) mg/dl Total Bilirubin 0.4 (0.0-1.0) mg/dL AST 16 (0-37) U/l ALT 12 (0-40) U/l Alkaline Phosphatase 122 H (39-117) U/L Total Protein 5.1 L (5.9-8.4) gm/dL Albumin 2.6 L (3.2-5.2) gm/dL Assessment and Plan (1) Diverticulitis of colon with perforation Status: Acute Assessment and plan: The patient is clinically stable and improved. Discussed with her the need to continue with present therapy. Current Visit: Yes - Time Spent With Patient Total time spent is greater than 50% in coordination of care (as documented) at patient's floor/unit and/or counseling patient:
[2019-10-19] MEDS ORDERED: LORazepam 2 MG/ML VIAL ONE (19:10)
[2019-10-19] MEDS: PROGESTERONE MICRONIZED 200 MG PO SCH ×2 (21:35→21:38)
[2019-10-19] MEDS: HYDROmorphone 2 MG/ML VIAL IV PRN (22:55)
[2019-10-20] MEDS: PIPERACILLIN SODIUM/TAZOBACTAM 3.375 GM in DEXTROSE 5% IN WATER 50 ML IV SCH ×4 (00:07→21:51)
[2019-10-20] MEDS: ACETAMINOPHEN 1,000 MG/100 ML BOTTLE IV SCH ×3 (05:33→21:51)
[2019-10-20] MEDS: 0.9 % SODIUM CHLORIDE 10 ML SYRINGE IV SCH ×3 (06:03→21:50)
[2019-10-20 06:30] LABS: Basophils # (Auto) 0.1 K/mcL (0.0-0.3); Eosinophils # (Auto) 0.3 K/mcL (0.0-0.7); Eosinophils % (Auto) 3.2 % (0.0-7.0); Granulocytes % (Auto) 53.4 % (38.0-78.0); Hematocrit 32.2 % (36.0-48.0); Hemoglobin 11.1 g/dL (12.0-15.0); Lymphocytes # (Auto) 2.8 K/mcL (1.5-4.8); Lymphocytes % (Auto) 32.3 % (15.5-49.0); Mean Cell Volume 88.6 fL (80.0-100.0); Mean Corpuscular HGB Conc 34.4 g/dL (31.0-36.0); Monocytes # (Auto) 0.9 K/mcL (0.1-0.9); Monocytes % (Auto) 10.1 % (1.0-12.0); Platelet Count 258 K/mcL (140-440); RBC 3.63 M/mcL (4.00-5.20); Red Cell Distribution Width 11.6 % (11.5-14.5); WBC 8.7 K/mcL (4.5-11.0)
[2019-10-20 06:46] LABS: ALT/SGPT 14 U/l (0-40); AST/SGOT 17 U/l (0-37); Albumin 2.9 gm/dL (3.2-5.2); Albumin/Globulin Ratio 1.1 (1.0-2.3); Alkaline Phosphatase 133 U/L (39-117); Bilirubin,Direct 0.2 mg/dL (0.0-0.3); Bilirubin,Total 0.4 mg/dL (0.0-1.0); Blood Urea Nitrogen 6 mg/dl (6-20); Calcium 8.4 mg/dl (8.6-10.4); Carbon Dioxide 25 mmol/L (22-30); Chloride 100 mmol/L (96-108); Globulin 2.7 gm/dL (2.2-3.7); Glomerular Filtration Rate 107; Glucose 76 mg/dL (70-105); Lactate Dehydrogenase 167 U/L (94-250); Phosphorous 3.3 mg/dL (2.7-4.5); Triglycerides 174 mg/dl (<150); Uric Acid 2.4 mg/dL (2.5-8.0)
[2019-10-20] MEDS: ESTRADIOL 1 MG TABLET PO SCH (09:16)
[2019-10-20] MEDS: HYDROmorphone 2 MG/ML VIAL IV PRN (09:26)
--- NOTE | 2019-10-20 12:22 | General Surgery Progress Note ---
Subjective Patient reports: feels better, pain is less, tolerating a regular diet, flatus, afebrile Narrative: Note initiated : 10/20/19 at 12:22 pm Service Date, if different from initiated Date: [] Patient: Radha Chavez 48 y/o F admitted on 10/15/19 for abd pain. Chief Complaint: [patient is clinically doing well though she is still upset that she was not discharged on yesterday. She however does have less tenderness and no distention on exam today. She denies having nausea. White blood count 8.7, hemoglobin 11.1, potassium 3.4] Objective Temp Pulse Resp BP Pulse Ox 98.1 F 73 14 136/77 97 10/20/19 08:00 10/20/19 08:00 10/20/19 08:00 10/20/19 08:00 10/20/19 08:00 - Additional Data Intake & Output - Last 24 hours: Intake & Output 10/18/19 10/19/19 10/20/19 10/21/19 05:59 05:59 05:59 05:59 Intake Total 3579.0909 3290 2150 150 Output Total 2825 3000 3900 1750 Balance 754.0909 290 -1750 -1600 Weight 194 lb 187 lb 8 oz 180 lb - General physical appearance well developed, well nourished, no distress - Eyes PERRL, normal ocular movement - ENT normal pinna, normal nares, normal mucosa, no hearing loss, no congestion - Neck no masses, no bruits, trachea midline, no lymphadenopathy, no venous distension - Respiratory normal expansion, normal respiratory effort, clear to auscultation - Cardiovascular Cardiovascular exam: Present: normal rate and rhythm (what he thinks 102 just N Sunday changes present. We gave the back table slowly), RRR, +S1, +S2. Absent: JVD, tachycardia - Abdomen tender ( mild tenderness around port sites otherwise unremarkable) - Integumentary no rash, no growths, no abnormal pigmentation - Neurologic normal coordination, normal sensation - Musculoskeletal normal gait, normal posture - Psychiatric oriented to time, oriented to person, oriented to place, speech is normal, memory intact - Labs 10/20/19 04:35 10/20/19 04:35 Diabetes panel 10/20/19 Range/Units 04:35 Sodium 136 (133-145) mmol/L Potassium 3.4 (3.3-5.1) mmol/L Chloride 100 (96-108) mmol/L Carbon Dioxide 25 (22-30) mmol/L BUN 6 (6-20) mg/dl Creatinine 0.6 (0.6-1.1) mg/dl Glucose 76 (70-105) mg/dL Calcium 8.4 L (8.6-10.4) mg/dl AST 17 (0-37) U/l ALT 14 (0-40) U/l Alkaline Phosphatase 133 H (39-117) U/L Total Protein 5.6 L (5.9-8.4) gm/dL Albumin 2.9 L (3.2-5.2) gm/dL Triglycerides 174 H (<150) mg/dl Calcium panel 10/20/19 Range/Units 04:35 Calcium 8.4 L (8.6-10.4) mg/dl Phosphorus 3.3 (2.7-4.5) mg/dL Albumin 2.9 L (3.2-5.2) gm/dL Pituitary panel 10/20/19 Range/Units 04:35 Sodium 136 (133-145) mmol/L Potassium 3.4 (3.3-5.1) mmol/L Chloride 100 (96-108) mmol/L Carbon Dioxide 25 (22-30) mmol/L BUN 6 (6-20) mg/dl Creatinine 0.6 (0.6-1.1) mg/dl Glucose 76 (70-105) mg/dL Calcium 8.4 L (8.6-10.4) mg/dl Adrenal panel 10/20/19 Range/Units 04:35 Sodium 136 (133-145) mmol/L Potassium 3.4 (3.3-5.1) mmol/L Chloride 100 (96-108) mmol/L Carbon Dioxide 25 (22-30) mmol/L BUN 6 (6-20) mg/dl Creatinine 0.6 (0.6-1.1) mg/dl Glucose 76 (70-105) mg/dL Calcium 8.4 L (8.6-10.4) mg/dl Total Bilirubin 0.4 (0.0-1.0) mg/dL AST 17 (0-37) U/l ALT 14 (0-40) U/l Alkaline Phosphatase 133 H (39-117) U/L Total Protein 5.6 L (5.9-8.4) gm/dL Albumin 2.9 L (3.2-5.2) gm/dL Assessment and Plan (1) Diverticulitis of colon with perforation Status: Acute Assessment and plan: The patient is clinically stable and improved. Discussed with her the need to continue with present therapy. Advanced to soft diet Current Visit: Yes - Time Spent With Patient Total time spent is greater than 50% in coordination of care (as documented) at patient's floor/unit and/or counseling patient:
[2019-10-20] MEDS: PROGESTERONE MICRONIZED 200 MG PO SCH ×2 (21:50)
[2019-10-20] MEDS: traZODone HCL 150 MG TABLET PO PRN (21:50)
[2019-10-21] MEDS: PIPERACILLIN SODIUM/TAZOBACTAM 3.375 GM in DEXTROSE 5% IN WATER 50 ML IV SCH ×5 (01:00→23:55)
[2019-10-21] MEDS: ACETAMINOPHEN 1,000 MG/100 ML BOTTLE IV SCH ×5 (05:30→23:56)
[2019-10-21 06:20] LABS: Basophils # (Auto) 0.1 K/mcL (0.0-0.3); Basophils % (Auto) 0.8 % (0.0-2.0); Eosinophils # (Auto) 0.3 K/mcL (0.0-0.7); Eosinophils % (Auto) 2.8 % (0.0-7.0); Granulocytes % (Auto) 62.8 % (38.0-78.0); Hematocrit 35.4 % (36.0-48.0); Hemoglobin 12.1 g/dL (12.0-15.0); Lymphocytes # (Auto) 2.8 K/mcL (1.5-4.8); Lymphocytes % (Auto) 25.2 % (15.5-49.0); Mean Cell Volume 88.6 fL (80.0-100.0); Mean Corpuscular HGB Conc 34.2 g/dL (31.0-36.0); Mean Platelet Volume 6.6 fL (7.4-10.4); Monocytes # (Auto) 0.9 K/mcL (0.1-0.9); Monocytes % (Auto) 8.4 % (1.0-12.0); Platelet Count 300 K/mcL (140-440); Red Cell Distribution Width 11.7 % (11.5-14.5); WBC 11.1 K/mcL (4.5-11.0)
[2019-10-21] MEDS: 0.9 % SODIUM CHLORIDE 10 ML SYRINGE IV SCH ×3 (06:27→20:52)
[2019-10-21 06:37] LABS: ALT/SGPT 23 U/l (0-40); AST/SGOT 25 U/l (0-37); Albumin 2.9 gm/dL (3.2-5.2); Albumin/Globulin Ratio 1.1 (1.0-2.3); Alkaline Phosphatase 130 U/L (39-117); Bilirubin,Direct < 0.2 mg/dL (0.0-0.3); Bilirubin,Total 0.3 mg/dL (0.0-1.0); Blood Urea Nitrogen 8 mg/dl (6-20); Calcium 8.5 mg/dl (8.6-10.4); Carbon Dioxide 24 mmol/L (22-30); Chloride 104 mmol/L (96-108); Globulin 2.7 gm/dL (2.2-3.7); Glomerular Filtration Rate 107; Glucose 96 mg/dL (70-105); Lactate Dehydrogenase 186 U/L (94-250); Triglycerides 225 mg/dl (<150)
[2019-10-21] MEDS: ESTRADIOL 1 MG TABLET PO SCH (08:15)
--- NOTE | 2019-10-21 15:07 | General Surgery Progress Note ---
Subjective Patient reports: feels better, pain is less, tolerating liquids well, flatus, bowel movement, afebrile Narrative: Note initiated : 10/21/19 at 3:04 pm Service Date, if different from initiated Date: [] Patient: Radha Chavez 48 y/o F admitted on 10/15/19 for abd pain. Chief Complaint: [Patient continues to improve. She has much less pain. She is tolerating liquid diet without difficulty and is passing flatus. She denies nausea. White blood count 11.1, hemoglobin 12.1, hematocrit 35.4] Objective Temp Pulse Resp BP Pulse Ox 99.1 F H 70 20 144/84 96 10/21/19 12:00 10/20/19 16:00 10/21/19 12:00 10/21/19 12:00 10/21/19 12:00 - Additional Data Intake & Output - Last 24 hours: Intake & Output 10/19/19 10/20/19 10/21/19 10/22/19 05:59 05:59 05:59 05:59 Intake Total 3290 2150 1964 295 Output Total 3000 3900 3650 900 Balance 290 -1750 -1686 -605 Weight 187 lb 8 oz 180 lb 177 lb 9 oz - General physical appearance well developed, well nourished, no distress - Eyes PERRL, normal ocular movement - ENT normal pinna, normal nares, normal mucosa, no hearing loss, no congestion - Neck no masses, no bruits, trachea midline, no lymphadenopathy, no venous distension - Respiratory normal expansion, normal respiratory effort, clear to auscultation - Cardiovascular Cardiovascular exam: Present: normal rate and rhythm, RRR, +S1, +S2. Absent: JVD, tachycardia - Abdomen soft, non tender, bowel sounds (patient's abdomen is nondistended. She has good active bowel sounds. She has minimal tenderness to palpation.) - Integumentary no rash, no growths, no abnormal pigmentation - Neurologic normal coordination, normal sensation - Musculoskeletal normal gait, normal posture - Psychiatric oriented to time, oriented to person, oriented to place, speech is normal, memory intact - Labs 10/21/19 04:57 10/21/19 04:57 Diabetes panel 10/21/19 Range/Units 04:57 Sodium 136 (133-145) mmol/L Potassium 3.6 (3.3-5.1) mmol/L Chloride 104 (96-108) mmol/L Carbon Dioxide 24 (22-30) mmol/L BUN 8 (6-20) mg/dl Creatinine 0.6 (0.6-1.1) mg/dl Glucose 96 (70-105) mg/dL Calcium 8.5 L (8.6-10.4) mg/dl AST 25 (0-37) U/l ALT 23 (0-40) U/l Alkaline Phosphatase 130 H (39-117) U/L Total Protein 5.6 L (5.9-8.4) gm/dL Albumin 2.9 L (3.2-5.2) gm/dL Triglycerides 225 H (<150) mg/dl Calcium panel 10/21/19 Range/Units 04:57 Calcium 8.5 L (8.6-10.4) mg/dl Phosphorus 3.0 (2.7-4.5) mg/dL Albumin 2.9 L (3.2-5.2) gm/dL Pituitary panel 10/21/19 Range/Units 04:57 Sodium 136 (133-145) mmol/L Potassium 3.6 (3.3-5.1) mmol/L Chloride 104 (96-108) mmol/L Carbon Dioxide 24 (22-30) mmol/L BUN 8 (6-20) mg/dl Creatinine 0.6 (0.6-1.1) mg/dl Glucose 96 (70-105) mg/dL Calcium 8.5 L (8.6-10.4) mg/dl Adrenal panel 10/21/19 Range/Units 04:57 Sodium 136 (133-145) mmol/L Potassium 3.6 (3.3-5.1) mmol/L Chloride 104 (96-108) mmol/L Carbon Dioxide 24 (22-30) mmol/L BUN 8 (6-20) mg/dl Creatinine 0.6 (0.6-1.1) mg/dl Glucose 96 (70-105) mg/dL Calcium 8.5 L (8.6-10.4) mg/dl Total Bilirubin 0.3 (0.0-1.0) mg/dL AST 25 (0-37) U/l ALT 23 (0-40) U/l Alkaline Phosphatase 130 H (39-117) U/L Total Protein 5.6 L (5.9-8.4) gm/dL Albumin 2.9 L (3.2-5.2) gm/dL Assessment and Plan (1) Diverticulitis of colon with perforation Status: Acute Assessment and plan: The patient is clinically stable and improved. Discussed with her the need to continue with present therapy. Advanced to soft diet Patient will probably be discharged home tomorrow with follow-up in the office in 2 weeks Current Visit: Yes - Time Spent With Patient Total time spent is greater than 50% in coordination of care (as documented) at patient's floor/unit and/or counseling patient:
[2019-10-21] MEDS: CYCLOBENZAPRINE 10 MG TABLET PO PRN (18:56)
[2019-10-21] MEDS: PROGESTERONE MICRONIZED 200 MG PO SCH (20:51)
[2019-10-21] MEDS: traZODone HCL 150 MG TABLET PO PRN (20:51)
[2019-10-22 05:25] LABS: Basophils # (Auto) 0.1 K/mcL (0.0-0.3); Basophils % (Auto) 0.6 % (0.0-2.0); Eosinophils # (Auto) 0.3 K/mcL (0.0-0.7); Eosinophils % (Auto) 2.6 % (0.0-7.0); Hematocrit 35.5 % (36.0-48.0); Hemoglobin 12.2 g/dL (12.0-15.0); Lymphocytes # (Auto) 2.6 K/mcL (1.5-4.8); Lymphocytes % (Auto) 24.8 % (15.5-49.0); Mean Cell Volume 88.6 fL (80.0-100.0); Mean Corpuscular HGB Conc 34.2 g/dL (31.0-36.0); Mean Platelet Volume 6.5 fL (7.4-10.4); Monocytes # (Auto) 0.6 K/mcL (0.1-0.9); Platelet Count 324 K/mcL (140-440); RBC 4.01 M/mcL (4.00-5.20); Red Cell Distribution Width 11.7 % (11.5-14.5); WBC 10.5 K/mcL (4.5-11.0)
[2019-10-22 05:47] LABS: ALT/SGPT 48 U/l (0-40); AST/SGOT 50 U/l (0-37); Alkaline Phosphatase 117 U/L (39-117); Bilirubin,Direct < 0.2 mg/dL (0.0-0.3); Bilirubin,Total 0.2 mg/dL (0.0-1.0); Blood Urea Nitrogen 9 mg/dl (6-20); Calcium 8.7 mg/dl (8.6-10.4); Carbon Dioxide 22 mmol/L (22-30); Chloride 102 mmol/L (96-108); Globulin 2.9 gm/dL (2.2-3.7); Glomerular Filtration Rate 107; Glucose 93 mg/dL (70-105); Lactate Dehydrogenase 186 U/L (94-250); Phosphorous 3.4 mg/dL (2.7-4.5); Triglycerides 228 mg/dl (<150); Uric Acid 2.3 mg/dL (2.5-8.0)
[2019-10-22] MEDS: ACETAMINOPHEN 1,000 MG/100 ML BOTTLE IV SCH ×2 (05:57→10:54)
[2019-10-22] MEDS: PIPERACILLIN SODIUM/TAZOBACTAM 3.375 GM in DEXTROSE 5% IN WATER 50 ML IV SCH ×2 (05:58→12:10)
[2019-10-22] MEDS: 0.9 % SODIUM CHLORIDE 10 ML SYRINGE IV SCH (05:58)
[2019-10-22] MEDS: ESTRADIOL 1 MG TABLET PO SCH (08:45)
--- NOTE | 2019-10-22 13:09 | Discharge Summary ---
Providers - Providers Patient information: Note initiated : 10/22/19 at 1:05 pm Service Date, if different from initiated Date: [] Patient: Radha Chavez 48 y/o F admitted on 10/15/19 for abd pain. Chief Complaint: [] Date of admission: 10/15/19 Discharge date: 10/22/19 Attending physician: Nely Joshua Hospitalization Hospital Course: 48-year-old fema 47 with acute diverticulitis with perforation. She has a 24- hour history of suprapubic pain accompanied with nausea and vomiting. Because of increasing severity she was seen in the emergency room was noted that her white blood count was [address] of abdomen showed sigmoid diverticulitis with perforation and scattered free air with early development of abscesses in the pelvis. She was informed of the findings was informed that I will try to treat her nonoperatively. She was made nothing by mouth except for ice chips and was treated with Zosyn IV. She responded to treatment 19 October follow-up CT showed abscess of 3.4 cm with a few bubbles of free air. White blood count at that time was 9.8. She was continued on IV antibiotics and today she is doing well. She has minimal discomfort and white blood count is 10.5. She is tolerating diet without difficulty. Patient was counseled for discharge home. She will be followed up in the office in 2 weeks. Discharge diagnosis: acute diverticulitis with perforation Secondary discharge diagnosis: Pelvic abscess Reason for admission: abdominal pain nausea and vomiting Procedures: None Pertinent studies/significant findings: CT of abdomen and pelvis with IV contrast Complications: None Exam Temp Pulse Resp BP Pulse Ox 98.1 F 63 16 142/74 96 10/22/19 08:00 10/22/19 08:00 10/22/19 08:00 10/22/19 08:00 10/22/19 08:00 - General physical appearance well developed, well nourished, no distress - Eyes PERRL, normal ocular movement - ENT normal pinna, normal nares, normal mucosa, no hearing loss, no congestion - Head Head exam IM: Present: atraumatic, normocephalic - Neck no masses, no bruits, trachea midline, no lymphadenopathy, no venous distension - Cardiovascular Cardiovascular exam IM: Present: normal rate and rhythm - Respiratory normal expansion, normal respiratory effort, clear to percussion, clear to auscultation - Abdomen Abdomen: Present: soft, tender (minimal tenderness in the hypogastrium in the suprapubic region), bowel sounds Hernia: Present: none - Genitourinary Present: normal external genitalia - Integumentary Present: no rash, no growths, no abnormal pigmentation - Neurologic Present: normal coordination, normal sensation - Musculoskeletal Present: normal gait, normal posture - Psychiatric Present: oriented to time, oriented to person, oriented to place, speech is normal, memory intact Discharge Plan - Patient/Caregiver Discharge Instructions Activity: increase activity as tolerated Diet: Regular Diet Prescriptions: Ciprofloxacin [Cipro] 500 mg PO BID #40 tab Transmission Status: Pending to [facility] 2005 metroNIDAZOLE [Flagyl] 500 mg PO Q8 #60 tab Transmission Status: Pending to [facility] 2005 Promethazine [Phenergan] 25 mg PO Q4HP PRN #30 tab PRN Reason: Nausea Transmission Status: Pending to [facility] 2005 - Follow up Plan Follow up with: Opal Marinelli ARNP [Primary Care Provider] - Nely Joshua MD [Physician] - 11/05/19 11:00 am Disposition: Home, Self-Care Prognosis: Good Rehab Potential: Good Overall status at discharge: patient is progressing back to baseline Pending Studies Resuscitation Status Full Code Diet GI Soft/Transitional Start Sat Oct 20 1216 Cyclobenzaprine HCl (Flexeril) 10 mg PO TIDP PRN PRN Reason: Pain Last Admin: 10/21/19 18:56 Dose: 10 mg Documented by: Admin: 10/18/19 09:17 Dose: 10 mg Documented by: Admin: 10/17/19 21:13 Dose: 10 mg Documented by: SELVIN Estradiol (Estrace) 2 mg PO DAILY [facility] Last Admin: 10/22/19 08:45 Dose: 2 mg Documented by: Admin: 10/21/19 08:15 Dose: 2 mg Documented by: Admin: 10/20/19 09:16 Dose: 2 mg Documented by: Admin: 10/19/19 10:09 Dose: 2 mg Documented by: Admin: 10/18/19 09:13 Dose: 2 mg Documented by: Admin: 10/17/19 08:54 Dose: 2 mg Documented by: Admin: 10/16/19 09:27 Dose: 2 mg Documented by: BJORN Cosigned by: YARI Hydromorphone HCl (Dilaudid) 1 mg IV Q2HP PRN; Protocol PRN Reason: Per Pain Protocol Last Admin: 10/20/19 09:26 Dose: 1 mg Documented by: Admin: 10/19/19 22:55 Dose: 1 mg Documented by: Admin: 10/18/19 22:03 Dose: 1 mg Documented by: Admin: 10/18/19 03:28 Dose: 1 mg Documented by: Admin: 10/17/19 21:53 Dose: 1 mg Documented by: Admin: 10/17/19 04:12 Dose: 1 mg Documented by: Admin: 10/16/19 23:31 Dose: 1 mg Documented by: Admin: 10/16/19 18:15 Dose: 1 mg Documented by: Admin: 10/16/19 16:17 Dose: 1 mg Documented by: Admin: 10/16/19 09:37 Dose: 1 mg Documented by: BJORN Cosigned by: YARI Admin: 10/16/19 07:44 Dose: 1 mg Documented by: Admin: 10/16/19 05:47 Dose: 1 mg Documented by: Admin: 10/16/19 02:50 Dose: 1 mg Documented by: Admin: 10/15/19 18:03 Dose: 1 mg Documented by: Admin: 10/15/19 14:28 Dose: 1 mg Documented by: Admin: 10/15/19 10:27 Dose: 1 mg Documented by: JETT Piperacillin Sod/Tazobactam (Sod 3.375 gm/ Dextrose) 50 mls @ 100 mls/hr IV Q6H LAZARO; Protocol Last Admin: 10/22/19 12:10 Dose: 100 mls/hr Documented by: Infusion: 10/22/19 06:28 Dose: 100 mls/hr Documented by: Admin: 10/22/19 05:58 Dose: 100 mls/hr Documented by: Infusion: 10/22/19 00:25 Dose: 100 mls/hr Documented by: Admin: 10/21/19 23:55 Dose: 100 mls/hr Documented by: Infusion: 10/21/19 19:24 Dose: 100 mls/hr Documented by: Admin: 10/21/19 18:54 Dose: 100 mls/hr Documented by: Infusion: 10/21/19 13:19 Dose: 0 mls/hr Documented by: Admin: 10/21/19 12:40 Dose: 100 mls/hr Documented by: Infusion: 10/21/19 06:58 Dose: 100 mls/hr Documented by: Admin: 10/21/19 06:28 Dose: 100 mls/hr Documented by: [email or web address] Infusion: 10/21/19 01:30 Dose: 0 mls/hr Documented by: [email or web address] Admin: 10/21/19 01:00 Dose: 100 mls/hr Documented by: [email or web address] Infusion: 10/21/19 00:30 Dose: 0 mls/hr Documented by: [email or web address] Infusion: 10/20/19 22:50 Dose: 0 mls/hr Documented by: [email or web address] Admin: 10/20/19 21:51 Dose: 50 mls/hr Documented by: Infusion: 10/20/19 13:30 Dose: 0 mls/hr Documented by: Admin: 10/20/19 13:00 Dose: 100 mls/hr Documented by: Infusion: 10/20/19 06:40 Dose: 0 mls/hr Documented by: Admin: 10/20/19 06:09 Dose: 100 mls/hr Documented by: Infusion: 10/20/19 00:37 Dose: 100 mls/hr Documented by: Admin: 10/20/19 00:07 Dose: 100 mls/hr Documented by: Infusion: 10/19/19 18:58 Dose: 100 mls/hr Documented by: Admin: 10/19/19 18:28 Dose: 100 mls/hr Documented by: Infusion: 10/19/19 13:04 Dose: 0 mls/hr Documented by: Admin: 10/19/19 12:34 Dose: 100 mls/hr Documented by: Infusion: 10/19/19 05:38 Dose: 0 mls/hr Documented by: Admin: 10/19/19 05:08 Dose: 100 mls/hr Documented by: Infusion: 10/19/19 01:00 Dose: 100 mls/hr Documented by: Admin: 10/19/19 00:30 Dose: 100 mls/hr Documented by: Infusion: 10/18/19 21:02 Dose: 0 mls/hr Documented by: Admin: 10/18/19 17:50 Dose: 100 mls/hr Documented by: Infusion: 10/18/19 12:57 Dose: 0 mls/hr Documented by: Admin: 10/18/19 12:27 Dose: 100 mls/hr Documented by: Infusion: 10/18/19 06:28 Dose: 0 mls/hr Documented by: Admin: 10/18/19 05:58 Dose: 100 mls/hr Documented by: Infusion: 10/18/19 00:40 Dose: 0 mls/hr Documented by: Admin: 10/18/19 00:04 Dose: 100 mls/hr Documented by: Infusion: 10/17/19 18:59 Dose: 100 mls/hr Documented by: Admin: 10/17/19 17:41 Dose: 100 mls/hr Documented by: [email or web address] Infusion: 10/17/19 13:35 Dose: 0 mls/hr Documented by: [email or web address] Admin: 10/17/19 13:04 Dose: 100 mls/hr Documented by: [email or web address] Infusion: 10/17/19 07:45 Dose: 0 mls/hr Documented by: [email or web address] Admin: 10/17/19 07:15 Dose: 100 mls/hr Documented by: [email or web address] Infusion: 10/17/19 01:45 Dose: 100 mls/hr Documented by: Admin: 10/17/19 01:12 Dose: 100 mls/hr Documented by: Infusion: 10/16/19 18:44 Dose: 100 mls/hr Documented by: Admin: 10/16/19 18:14 Dose: 100 mls/hr Documented by: Infusion: 10/16/19 13:30 Dose: 0 mls/hr Documented by: Admin: 10/16/19 13:00 Dose: 100 mls/hr Documented by: BJORN Cosigned by: JETT Infusion: 10/16/19 08:15 Dose: 0 mls/hr Documented by: Admin: 10/16/19 07:43 Dose: 100 mls/hr Documented by: Infusion: 10/16/19 04:05 Dose: 100 mls/hr Documented by: Admin: 10/16/19 03:35 Dose: 100 mls/hr Documented by: Infusion: 10/15/19 21:47 Dose: 100 mls/hr Documented by: Admin: 10/15/19 21:17 Dose: 100 mls/hr Documented by: Infusion: 10/15/19 15:00 Dose: 0 mls/hr Documented by: Admin: 10/15/19 14:27 Dose: 100 mls/hr Documented by: JETT Acetaminophen (Ofirmev) 1,000 mg in 100 mls @ 200 mls/hr IV Q6H LAZARO; Protocol Last Admin: 10/22/19 10:54 Dose: 200 mls/hr Documented by: Infusion: 10/22/19 06:27 Dose: 200 mls/hr Documented by: Admin: 10/22/19 05:57 Dose: 200 mls/hr Documented by: Infusion: 10/22/19 00:26 Dose: 200 mls/hr Documented by: Admin: 10/21/19 23:56 Dose: 200 mls/hr Documented by: Infusion: 10/21/19 18:05 Dose: 200 mls/hr Documented by: Admin: 10/21/19 17:35 Dose: 200 mls/hr Documented by: Infusion: 10/21/19 13:02 Dose: 0 mls/hr Documented by: Admin: 10/21/19 11:56 Dose: 200 mls/hr Documented by: Infusion: 10/21/19 11:56 Dose: 0 mls/hr Documented by: Infusion: 10/21/19 06:27 Dose: 0 mls/hr Documented by: [email or web address] Admin: 10/21/19 05:30 Dose: 100 mls/hr Documented by: [email or web address] Infusion: 10/21/19 05:30 Dose: 0 mls/hr Documented by: [email or web address] Infusion: 10/21/19 00:20 Dose: 0 mls/hr Documented by: [email or web address] Admin: 10/21/19 00:00 Dose: 200 mls/hr Documented by: [email or web address] Infusion: 10/21/19 00:00 Dose: 0 mls/hr Documented by: [email or web address] Infusion: 10/20/19 22:50 Dose: 0 mls/hr Documented by: [email or web address] Admin: 10/20/19 21:51 Dose: 100 mls/hr Documented by: Infusion: 10/20/19 15:15 Dose: 0 mls/hr Documented by: Admin: 10/20/19 14:43 Dose: 200 mls/hr Documented by: Infusion: 10/20/19 06:10 Dose: 0 mls/hr Documented by: Admin: 10/20/19 05:33 Dose: 200 mls/hr Documented by: Infusion: 10/19/19 23:59 Dose: 200 mls/hr Documented by: Admin: 10/19/19 23:29 Dose: 200 mls/hr Documented by: Admin: 10/19/19 21:38 Dose: Not Given Documented by: Infusion: 10/19/19 12:38 Dose: 0 mls/hr Documented by: Admin: 10/19/19 11:55 Dose: 200 mls/hr Documented by: Infusion: 10/19/19 06:07 Dose: 0 mls/hr Documented by: Admin: 10/19/19 05:37 Dose: 200 mls/hr Documented by: Infusion: 10/18/19 23:55 Dose: 200 mls/hr Documented by: Admin: 10/18/19 23:25 Dose: 200 mls/hr Documented by: Infusion: 10/18/19 19:07 Dose: 200 mls/hr Documented by: Admin: 10/18/19 18:37 Dose: 200 mls/hr Documented by: Infusion: 10/18/19 13:43 Dose: 0 mls/hr Documented by: Admin: 10/18/19 13:13 Dose: 200 mls/hr Documented by: Infusion: 10/18/19 08:52 Dose: 0 mls/hr Documented by: Admin: 10/18/19 07:09 Dose: 200 mls/hr Documented by: Infusion: 10/18/19 01:34 Dose: 200 mls/hr Documented by: Admin: 10/18/19 01:07 Dose: 200 mls/hr Documented by: Infusion: 10/17/19 18:57 Dose: 200 mls/hr Documented by: Admin: 10/17/19 17:43 Dose: 200 mls/hr Documented by: Infusion: 10/17/19 12:45 Dose: 0 mls/hr Documented by: Admin: 10/17/19 12:15 Dose: 200 mls/hr Documented by: Infusion: 10/17/19 07:15 Dose: 0 mls/hr Documented by: Admin: 10/17/19 06:44 Dose: 200 mls/hr Documented by: Infusion: 10/17/19 01:56 Dose: 200 mls/hr Documented by: Admin: 10/17/19 00:44 Dose: 200 mls/hr Documented by: Infusion: 10/16/19 20:00 Dose: 200 mls/hr Documented by: Admin: 10/16/19 19:30 Dose: 200 mls/hr Documented by: SELVIN Ondansetron HCl (Zofran) 4 mg IV Q6HP PRN PRN Reason: Nausea And Vomiting Last Admin: 10/17/19 12:32 Dose: 4 mg Documented by: Admin: 10/15/19 18:40 Dose: 4 mg Documented by: SELVIN Progesterone, Micronized [ Prometrium] 200 Mg 1 dose PO HS LAZARO Last Admin: 10/21/19 20:51 Dose: 1 dose Documented by: Admin: 10/20/19 21:50 Dose: 1 dose Documented by: Admin: 10/19/19 21:38 Dose: Not Given Documented by: Admin: 10/18/19 21:02 Dose: 1 dose Documented by: Admin: 10/17/19 21:12 Dose: 1 dose Documented by: SELVIN Promethazine HCl (Phenergan) 12.5 mg IV Q4HP PRN; Protocol PRN Reason: Nausea/Vomiting Last Admin: 10/19/19 22:54 Dose: 12.5 mg Documented by: Admin: 10/19/19 16:45 Dose: 12.5 mg Documented by: Admin: 10/19/19 10:50 Dose: 12.5 mg Documented by: Admin: 10/18/19 19:46 Dose: 12.5 mg Documented by: Admin: 10/18/19 11:10 Dose: 12.5 mg Documented by: Admin: 10/18/19 03:28 Dose: 12.5 mg Documented by: Admin: 10/17/19 21:11 Dose: 12.5 mg Documented by: Admin: 10/17/19 10:39 Dose: 12.5 mg Documented by: [email or web address] Admin: 10/17/19 06:50 Dose: 12.5 mg Documented by: Admin: 10/16/19 23:28 Dose: 12.5 mg Documented by: Admin: 10/16/19 18:35 Dose: 12.5 mg Documented by: Admin: 10/16/19 04:24 Dose: 12.5 mg Documented by: Admin: 10/15/19 23:43 Dose: 12.5 mg Documented by: Admin: 10/15/19 19:36 Dose: 12.5 mg Documented by: SELVIN Sodium Chloride (Saline Flush) 10 ml IV Q8 [facility] Last Admin: 10/22/19 05:58 Dose: 10 ml Documented by: Admin: 10/21/19 20:52 Dose: 10 ml Documented by: Admin: 10/21/19 13:19 Dose: Not Given Documented by: Admin: 10/21/19 06:27 Dose: 10 ml Documented by: Admin: 10/20/19 21:50 Dose: 10 ml Documented by: Admin: 10/20/19 16:41 Dose: Not Given Documented by: Admin: 10/20/19 06:03 Dose: 10 ml Documented by: Admin: 10/19/19 21:39 Dose: 10 ml Documented by: Admin: 10/19/19 16:46 Dose: 10 ml Documented by: Admin: 10/19/19 08:00 Dose: Not Given Documented by: Admin: 10/18/19 22:15 Dose: Not Given Documented by: Admin: 10/18/19 14:08 Dose: Not Given Documented by: Admin: 10/18/19 05:59 Dose: Not Given Documented by: Admin: 10/17/19 21:12 Dose: Not Given Documented by: Admin: 10/17/19 14:01 Dose: Not Given Documented by: [email or web address] Admin: 10/17/19 06:47 Dose: Not Given Documented by: Admin: 10/16/19 21:40 Dose: Not Given Documented by: Admin: 10/16/19 16:03 Dose: Not Given Documented by: Admin: 10/16/19 05:38 Dose: Not Given Documented by: Admin: 10/15/19 22:12 Dose: Not Given Documented by: Admin: 10/15/19 15:31 Dose: Not Given Documented by: JETT Trazodone HCl (Desyrel) 150 mg PO HSP PRN PRN Reason: insomnia Last Admin: 10/21/19 20:51 Dose: 150 mg Documented by: Admin: 10/20/19 21:50 Dose: 150 mg Documented by: Admin: 10/17/19 21:50 Dose: 150 mg Documented by: Admin: 10/16/19 23:31 Dose: 150 mg Documented by: Admin: 10/15/19 22:10 Dose: 150 mg Documented by: SELVIN Shift Summary 10/22/19 05:03 Shift Summary by Barb Colvin Admitted 10/15 with diverticulitis with perforation. A&O x4, up ad elfego in room. Flexeril given x1, Phenergan given x1. Has slept well this shift. VSS on RA, SBP 171 at 2000, 140s and 130s at 0000 and 0400. Scheduled Ofirmev and Zosyn. 22G to L hand. Bedside report to follow. Initialized on 10/22/19 05:03 - END OF NOTE
== END 2019-10-22 01:30 | disposition home or self-care (01) | DRG 392 ==
LOC: ED 05:40 → MEDSUROUT 08:53 → MEDSUR 08:53
PROVIDERS: ADMIT Family Medicine Adult Medicine; ATTEND Family Medicine Adult Medicine